=== PATIENT | male | born 1975 | race African-American/Black ===

== ENCOUNTER 2017-12-12 20:51 | Emergency (ER) | payer SELFPAY ==
[2017-12-12] MEDS ORDERED: DIPH/PERTUSS(ACELL)/TETANUS VAC/PF 0.5 ML SYR (>=10YO) IM ONE (21:58)
[2017-12-12] MEDS ORDERED: LIDOCAINE 1% INJ-PF (10 MG/ML) 30 ML SDV INJ ONE (21:58)
--- NOTE | 2017-12-12 21:58 | ER Document Report ---
ED Animal Bite - General Chief Complaint: Dog Bite Stated Complaint: DOG BITE Time Seen by Provider: 12/12/17 21:34 Mode of Arrival: Ambulatory Information source: Patient Notes: Patient is a 42-year-old male who presents to the ER today for dog bite to his left fourth finger that occurred just prior to arrival. Patient states that it was his neighbor's dog but is up-to-date on rabies shots. Patient does not remember when his last tetanus shot was. Patient states bleeding is controlled with bandaging. He has full range of motion of all of his fingers. He has no numbness or tingling. - Related Data Allergies/Adverse Reactions: NSAIDS (Non-Steroidal Anti-Inflamma Adverse Reaction (Verified 12/12/17 20:56) Past Medical History - General Information source: Patient - Social History Smoking Status: Never Smoker Family History: Reviewed & Not Pertinent Review of Systems - Review of Systems Constitutional: No symptoms reported EENT: No symptoms reported Cardiovascular: No symptoms reported Respiratory: No symptoms reported Gastrointestinal: No symptoms reported Genitourinary: No symptoms reported Male Genitourinary: No symptoms reported Musculoskeletal: No symptoms reported Skin: See HPI Hematologic/Lymphatic: No symptoms reported Neurological/Psychological: No symptoms reported Physical Exam - Vital signs Vitals: Temp Pulse Resp BP 99.0 F 80 18 154/100 H 12/12/17 21:03 12/12/17 21:03 12/12/17 21:03 12/12/17 21:03 - Notes Notes: PHYSICAL EXAMINATION: GENERAL: Well-appearing and in no acute distress. HEAD: Atraumatic, normocephalic. EYES: Pupils equal round and reactive to light, extraocular movements intact, sclera anicteric, conjunctiva are normal. NECK: Normal range of motion, supple without lymphadenopathy LUNGS: CTAB and equal. No wheezes rales or rhonchi. HEART: Regular rate and rhythm without murmurs EXTREMITIES: Good Capillary refill and range of motion of the injured finger, normal range of motion, no pitting edema. No cyanosis. NEUROLOGICAL: Cranial nerves grossly intact. Normal sensory/motor exams. PSYCH: Normal mood, normal affect. SKIN: Warm, Dry, normal turgor, 2 cm laceration to the palmar surface of the left fourth digit between the DIP and PIP joints, subcutaneous fat exposed, no ligaments or bones visible, curved in appearance, no foreign body Course - Re-evaluation Re-evalutation: 12/13/17 00:09 X-ray negative for any acute pathology except for laceration, laceration was tacked back together with 3 sutures and patient was placed on Augmentin to cover for dog bite. Patient to have sutures removed in 7 days. - Vital Signs Vital signs: Temp Pulse Resp BP Pulse Ox 98.5 F 75 18 159/102 H 99 12/12/17 23:53 12/12/17 23:53 12/12/17 23:53 12/12/17 23:53 12/12/17 23:53 Discharge - Discharge Clinical Impression: laceration left finger, Need for tetanus booster Dog bite Qualifiers: Encounter type: initial encounter Qualified Code(s): W54.0XXA - Bitten by dog, initial encounter Condition: Stable Disposition: HOME, SELF-CARE Instructions: Laceration Care ([facility]), Prophylactic Antibiotic ([facility]), Soap Cleansing ([facility]), Tetanus Immunization Given ([facility]) Additional Instructions: Return immediately for any new or worsening symptoms. Follow up with primary care provider, call tomorrow to make followup appointment. Please be seen in 7 days to have sutures removed Prescriptions: Amox Tr/Potassium Clavulanate [Augmentin 875-125 Tablet] 1 tab PO BID 10 Days tablet Forms: Return to Work
--- NOTE | 2017-12-12 22:24 | RADIOLOGY REPORT (SQ) ---
EXAM DESCRIPTION: FINGER LEFT COMPLETED DATE/TIME: 12/12/2017 10:15 pm REASON FOR STUDY: dog bite left finger COMPARISON: None. NUMBER OF VIEWS: Three views. TECHNIQUE: AP, lateral, and oblique images acquired of the left fourth finger. LIMITATIONS: None. FINDINGS: MINERALIZATION: Normal. BONES: No acute fracture or dislocation. No worrisome bone lesions. SOFT TISSUES: No soft tissue swelling. No foreign body. OTHER: No other significant finding. IMPRESSION: No retained radiopaque foreign body or underlying osseous injury. COMMENT: SITE OF TRAUMA/COMPLAINT MARKED/STAMP COMPLETED: YES. TECHNICAL DOCUMENTATION: JOB ID: [id number] [email or web address] All Rights Reserved Reading location - IP/workstation name: [email or web address]
[2017-12-12] MEDS ORDERED: HYDROCODONE/ACETAMINOPHEN 5-325 MG (6 TAB/ER DISP) PO PRN (23:04)
[2017-12-12 23:54] VITALS: BP 159/102
== END 2017-12-12 23:54 | disposition home or self-care (01) ==
LOC: EDSEX → ER 20:51
DX: S61.255A Open bite of left ring finger without damage to nail, initial encounter (principal); W54.0XXA Bitten by dog, initial encounter; Y93.K9 Activity, other involving animal care; Z23 Encounter for immunization; Z88.8 Allergy status to other drugs, medicaments and biological substances
CPT/HCPCS: 99283; 90471; 73140; 90715; 12001; J3490